=== PATIENT | female | born 1955 | race Caucasian/White ===

== ENCOUNTER 2020-06-04 04:36 | Day surgery (SDC) | payer BC, OTHER ==
[2020-05-30 15:54] VITALS: BMI 23.8
[2020-06-04] MEDS ORDERED: MIDAZOLAM HCL 2 MG/2 ML SINGLE DOSE VIAL ONE (12:02)
[2020-06-04] MEDS ORDERED: SODIUM CHLORIDE 0.9% P/F 10 ML VIAL IJ ONE (13:38)
[2020-06-04] MEDS ORDERED: ceFAZolin SODIUM 1 GM VIAL ONE (13:38)
[2020-06-04] MEDS ORDERED: ceFAZolin 2 GRAM PREMIX BAG IVPB ONE (13:40)
[2020-06-04] MEDS ORDERED: PROPOFOL 20 ML ONE (14:15)
[2020-06-04] MEDS ORDERED: oxyCODONE HCL 5 MG TABLET PO PRN (16:06)
[2020-06-04] MEDS ORDERED: ONDANSETRON 4 MG/2 ML VIAL IVPUSH PRN (16:06)
[2020-06-04] MEDS ORDERED: LACTATED RINGERS SOLUTION 1,000 ML IV SCH (16:15)
[2020-06-04 17:40] VITALS: BP 130/80; PULSE 65; TEMP 98
== END 2020-06-04 17:44 | disposition home or self-care (01) ==
LOC: JASU-SURG 04:36
PROVIDERS: ATTEND Obstetrics & Gynecology
PROC: 0UB98ZZ Excision of Uterus, Via Natural or Artificial Opening Endoscopic (ICD-10-PCS; principal; 2020-06-04 11:00)
PROC: 0UDB8ZX Extraction of Endometrium, Via Natural or Artificial Opening Endoscopic, Diagnostic (ICD-10-PCS; 2020-06-04 11:00)
DX: D25.0 Submucous leiomyoma of uterus (principal)
CPT/HCPCS: 36415; 84703; 86850; 86900; 86901; 94760